=== PATIENT | male | born 1945 | race Caucasian/White ===

== ENCOUNTER → 2025-01-04 09:36 | Outpatient (REF) | payer MEDICARE, OTHER, SELFPAY ==
[2025-01-04 10:11] LABS: % Basophils 0.8 % (0-2); % Eosinophils 2.1 % (0-6); % Immature Granulocytes 0.6 % (0-0.5); % Lymphocytes 16.2 % (20.5-51.1); % Monocytes 9.8 % (1.7-9.3); % Neutrophils 70.5 % (42.2-75.2); Absolute Basophils 0.1 10^3/uL (0-0.2); Absolute Eosinophils 0.2 10^3/uL (0-0.7); Absolute Immature Granulocytes 0.1 10^3/uL (0-0.05); Absolute Lymphocytes 1.4 10^3/uL (1.2-3.4); Absolute Monocytes 0.9 10^3/uL (0.1-0.6); Absolute Neutrophils 6.3 10^3/uL (1.4-6.5); Hematocrit 40.3 % (39.0-52.0); Hemoglobin 13.5 g/dL (13.0-18.0); Mean Corp Hgb Conc. 33.5 g/dL (33.0-37.0); Mean Corpuscular Volume 95.5 fL (80.0-94.0); Mean Platelet Volume 10.1 fL (7.4-10.4); Nucleated Red Blood Cells % 0 % (-); Platelet Count 227 10^3/uL (130-400); Red Blood Cell Count 4.22 10^6/uL (4.70-6.10); Red Cell Dist. Width 13.5 % (11.5-14.5); White Blood Cell Count 8.9 10^3/uL (4.8-10.8)
[2025-01-04 10:32] LABS: ALT (SGPT) 21 U/L (0-50); AST (SGOT) 20 U/L (17-59); Albumin 3.9 g/dl (3.5-5.0); Alkaline Phosphatase 100 U/L (38-126); Blood Urea Nitrogen 30 mg/dl (9-20); Calcium 9.4 mg/dl (8.4-10.2); Carbon Dioxide 25 mmol/L (22-30); Chloride 107 mmol/L (98-107); Glucose 92 mg/dl (70-99); Sodium 139 mmol/L (135-145); Total Bilirubin 0.8 mg/dl (0.2-1.3); eGFR 51.45
== END ==
LOC: SDSPAT 09:36
PROVIDERS: ATTENDING PHYSICIAN Student in an Organized Health Care Education/Training Program; FAMILY PHYSICIAN Student in an Organized Health Care Education/Training Program; OTHER PHYSICIAN Internal Medicine Cardiovascular Disease
DX: Z95.1 Presence of aortocoronary bypass graft (principal); Z01.810 Encounter for preprocedural cardiovascular examination
CPT/HCPCS: 36415; 80053; 85025; 93005

== ENCOUNTER 2025-01-05 09:40 | Day surgery (SDC) | payer MEDICARE, OTHER, SELFPAY ==
--- NOTE | 2025-01-04 08:52 | HPS.HSE ---
Family Physician
-
Family Physician: NO INTERVIEW UNKNOWN
Chief Complaint
-
Coronary artery disease with history of CABG.
History of Present Illness
The patient is a 79 year old male presenting today for a history of multivessel coronary artery disease with previous CABG in 1984 and PCI with left main stent in 2016. He is on dual antiplatelet therapy with Aspirin and Brilinta. He does
report intermittent generalized chest 'aches' and shortness of breath, mostly with exertion, as of recent. His past medical history is significant for carotid artery disease status post bilateral carotid endarterectomy, peripheral vascular disease
status post left femoral endarterectomy and reported right lower extremity stenting, abdominal aortic aneurysm status post endovascular repair, ischemic cardiomyopathy, chronic kidney disease, and non-insulin dependent diabetes per old primary care
records. He is noted to have a lack of screening studies over the last several years despite recommended follow-up. He is now agreeable to a left cardiac catheterization given his more recent symptoms and strong advisement from his routine
product steward, Dr. Rick Camp. He denies any current complaints today such as chest pain and shortness of breath at rest, palpitations, nausea, vomiting, diarrhea, lightheadedness, dizziness, cough, sore throat, or fever.
Medical History
Past Medical History
Past Medical History: Reports Other
Additional Past Medical History:
1. Coronary artery disease/myocardial infarction, status post CABG 1984 and PCI with left main stent 2016; on dual antiplatelet therapy.
2. Hypertension.
3. Dyslipidemia.
4. Bifascicular block.
5. Ischemic cardiomyopathy, reduced ejection fraction.
6. Abdominal aortic aneurysm, status post endovascular repair 2018.
7. Bilateral carotid artery stenosis, status post bilateral carotid endarterectomy.
8. Peripheral vascular disease, status post left femoral endarterectomy, 2018, and reported right lower extremity stenting.
9. Venous varicosities, status post varicose vein stripping.
10. Mild-moderate mitral regurgitation.
11. Moderate tricuspid regurgitation.
12. Mild-moderate pulmonary regurgitation.
13. Mild pulmonary hypertension.
14. Chronic kidney disease stage 3.
15. Non-insulin dependent diabetes per records.
16. GERD.
17. Colon polyps.
18. Diverticulosis.
19. Hemorrhoids.
20. Peripheral neuropathy.
21. Multilevel degenerative disc disease with stenosis.
22. Ambulatory dysfunction.
23. BPH.
24. Left central retinal vein occlusion with resultant left eye blindness.
25. Glaucoma.
26. Depression.
27. Remote history of tobacco abuse.
Past Surgical History: Reports Other
Additional Past Surgical History:
1. CABG.
2. PCI with left main stent.
3. Endovascular AAA repair and left femoral endarterectomy.
4. Bilateral carotid endarterectomy.
5. Reported right lower extremity stenting.
6. Venous varicosity stripping.
7. Lumbar surgery.
8. Appendectomy.
9. Colonoscopy.
Social History
Tobacco: Former Smoker (He is a former 2 pack per day cigarette smoker who quit tobacco altogether in 1999. )
Alcohol: None
Personal:
Living: Other (He lives with his in a 2 story home. )
Family History
Family History: Not pertinent
Allergies / Home Medications
Allergy/Medication List:
Home medications:
1. Aspirin 81 mg p.o. daily.
2. Atorvastatin 40 mg p.o. every evening.
3. Combigan 1 drop both eyes twice a day.
4. Carvedilol 3.125 mg p.o. twice a day.
5. Dorzolamide 1 drop both eyes twice a day.
6. Zetia 5 mg p.o. every evening.
7. Folic acid 1 mg p.o. every evening.
8. Isosorbide mononitrate 30 mg p.o. daily.
9. Vyzulta 1 drop both eyes as bedtime.
10. Multivitamin 1 tablet p.o. daily.
11. Tamsulosin 0.4 mg p.o. at bedtime.
12. Brilinta 60 mg p.o. twice a day.
13. Venlafaxine 225 mg p.o. at bedtime.
14. Vitamin B complex 1 tablet p.o. twice a day.
15. CoQ10 200 mg p.o. every evening.
Allergies: No known allergies.
Review of Systems
-
A 12 point ROS was completed and negative except as noted: Yes
Physical Exam
Vital Signs
Blood pressure 131/69. Heart rate 64. Respirations 18. Pulse ox 100% on room air.
Height 5 feet, 8 inches. Weight 80.2 kg. BMI 26.9.
Physical Exam
General: Well Developed, Well Nourished and No Apparent Distress
HEENT: NormoCephalic, Moist mucous membranes, Atraumatic and Other (Chronic left eye blindness. )
Respiratory: Clear
Cardiac: Regular Rhythm
GI: Soft, Non Tender and Non Distended
Musculoskeletal: No Edema and Other (The patient ambulates with a single point cane. )
Skin: Warm and Dry
Neuro: AO x 3 and No Motor Deficits
Laboratory Results
-
DIAGNOSTIC STUDIES as of 01/04/2025: White blood cell count 8.9. Hemoglobin 13.5. Platelet count 227,000. Sodium 139. Potassium 5.0. BUN 30. Creatinine 1.4. Glucose 92. Calcium 9.4. AST 20. ALT 21. Albumin 3.9.
EKG 01/04/2025: Sinus rhythm with first degree AV block and supraventricular complexes. Bifascicular block.
Echocardiogram 12/30/2024: Severe left ventricular systolic dysfunction. Mild to moderate mitral regurgitation. Moderate tricuspid regurgitation. Mild to moderate pulmonic regurgitation. Mild pulmonary hypertension. Grade 2 diastolic dysfunction.
Impression/Plan
-
IMPRESSION/PLAN:
1. Coronary artery disease with history of CABG: The patient is in need of a left cardiac catheterization with Dr. Aidan Martin on 01/05/2025. The benefits and risks of the procedure have been explained to the patient. The patient understands
these risks and wishes to proceed. He can continue his dual antiplatelet medications uninterrupted prior to his procedure.
[2025-01-04 09:47] VITALS: BMI 26.9
[2025-01-05] VITALS (14 sets, daily range): BP systolic 113–156; BP diastolic 70–98; BMI 26.6
[2025-01-05] MEDS: NSS 238 ML IV (11:12)
[2025-01-05 14:14] LABS: ACT-LR - POC 271 Seconds (116-155)
[2025-01-05 14:30] LABS: ACT-LR - POC 253 Seconds (116-155)
[2025-01-05 14:42] LABS: ACT-LR - POC 318 Seconds (116-155)
[2025-01-05 15:10] LABS: ACT-LR - POC 361 Seconds (116-155)
[2025-01-05 16:32] LABS: ACT-LR - POC 321 Seconds (116-155)
--- NOTE | 2025-01-05 17:30 | PTCARENOTE ---
Received pt from micro lab analyst, VSS, monitor showing SR 1st deg AV block, +BBB. Right femoral arterial line to pressure bag & transducer, left femoral vein to NSS @ KVO, dressing with old drainage noted, no active bleeding, no hematoma. +CMS to right
foot, palpable pedal pulses noted. Slight back discomfort d/t strict bedrest. Oriented to room, call singh in reach.
[2025-01-05 17:38] LABS: ACT-LR - POC 218 Seconds (116-155)
[2025-01-05] MEDS: ZETIA 5 MG PO (17:49)
[2025-01-05] MEDS: LIPITOR 40 MG PO (17:49)
[2025-01-05] MEDS: NSS 500 VEN SHEATH (17:50)
[2025-01-05 18:50] LABS: ACT-LR - POC 190 Seconds (116-155)
[2025-01-05 20:01] LABS: ACT-LR - POC 173 Seconds (116-155)
[2025-01-05] MEDS: COREG 3.125 MG PO (20:08)
[2025-01-05] MEDS: TIMOPTIC 0.5% OPHTHALMIC SOLUTION 1 DROP BOTH EYES (20:15)
[2025-01-05] MEDS: TRUSOPT 2% OPHTHALMIC SOLUTION 1 DROP BOTH EYES (20:16)
[2025-01-05] MEDS: ALPHAGAN 0.2% EYE DROPS 1 DROP BOTH EYES (20:59)
[2025-01-05 21:00] LABS: ACT-LR - POC 149 Seconds (116-155)
--- NOTE | 2025-01-05 21:22 | ITS.CL.PN ---
[employer] Delivery Driver - Procedure Note
Procedure
Procedure Note:
CARDIAC CATHETERIZATION REPORT
Date of Procedure: 01/05/25
Referring: Dr. Rick Camp MD
Indication: severe cardiomyopathy
PROCEDURE(S)
1. right heart catheterization
1. left heart catheterization
2. coronary angiography
3. bypass graft angiography
4. iFR RCA
5. attempted PCI to Ramus
ACCESS:
1. 6F right common femoral artery (closure: manual hemostasis)
2. 6F right common femoral vein (closure: manual hemostasis)
CATHETERS
1. 6F Waterproof-Alyse
2. 6F 3DRC
3. 6F JL3.5
4. 6F DENNISE
5. 6F 3DRC guide
6. 6F EBU3.5 guide
MODERATE SEDATION: 60 minutes of moderate sedation was utilized. An independent auditor medical claims was present to assist with and help manage the patient's level of consciousness and physiologic status.
HEMODYNAMIC DATA
LV 150/17 (EDP 26) mmHg
AO 155/69 (mean 101) mmHg
RA 13 mmHg
RV 52/8 (EDP 14) mmHg
PA 49/20 (mean 32) mmHg
PCWP 26 mmHg
SaO2 97.0%
SvO2 66.6%
Hb 13.2 g/dL
CO/CI 4.44/2.29 L/min/m2
SVR 1586 dsc*-5
PVR 1.6 Wood units
CORONARY ANGIOGRAPHY
Dominance: Right
LM: Patent stent, no significant disease
LAD: Totally occluded proximally with the vessel supplied by the patent LARIOS to LAD
LCx: Small vessel giving rise to a small marginal branch and small LPL branch. There is diffuse moderate nonobstructive disease.
Ramus: Moderate caliber vessel with a retroflexed takeoff. There is up to 90% disease in the mid body of the vessel and diffuse moderate disease throughout. There is DINA-3 flow distally.
RCA: Small vessel giving rise to a small RPDA. There is focal calcific disease at the ostium that appears severe in cranial projections. However there is no pressure dampening on engagement and normal contrast reflux from the vessel. This was
further interrogated by iFR and found to be negative.
BYPASS GRAFT ANGIOGRAPHY:
LARIOS-LAD: the LARIOS is taken as a pedicle and forms an anastomosis with the mid-LAD. The supplied portion of the LAD is patent with mild disease only.
SVG-Ramus: known to be occluded and no selectively engaged
iFR of ostial RCA
Heparin was administered to achieve ACT greater than 300. An Omni wire was flushed and zeroed outside the body and then advanced to the tip of the guide which had been disengaged near the ostium of the RCA. The wire introducer was removed and the
catheter flushed with saline, after which pressure of the wire and guide were normalized. The wire was advanced to the mid RCA with careful attention paid to maintaining the guide catheter in a disengaged position. iFR recorded at 0.95. iFR pullback
was performed noting a focal pattern at the ostium. On return to the tip of the guide catheter, iFR appropriately normalized to ~1.0, confirming lack of wire drift. To ensure accuracy given the challenges in maintaining disengaged guide position,
the entire procedure was repeated again with similar results. The procedure was then repeated a third time with normalization performed with the wire in the mid vessel and pullback performed noting jump to 1.05 with the wire in the aorta, again,
also consistent with an ostial RCA delta IFR of 0.05. Overall, these multiple measure were consistent with nonobstructive disease at the RCA ostium.
Attempted PCI of ramus artery
As above, there was noted to be new obstructive disease of the moderate caliber ramus artery. The decision was made to attempt PCI of this vessel to improve coronary perfusion in the setting of severe ischemic cardiomyopathy. I anticipated
difficulty with wiring and equipment deliver given the retroflexed takeoff, so, given contrast usage and the patient's moderately elevated LVEDP, plan was stage the procedure if it became clear that completion would require significant additional
time and contrast. The left main was engaged with a EBU3.5 guide catheter. A Runthrough wire was advanced to the proximal portion of the ramus with moderate difficulty after multiple wire reshapings to allow wiring of what proved to be a truly 180
degree retroflexed takeoff. Wiring difficulty was further compounded by presence of the left main stent which extended to the ramus takeoff. It was clear that successful PCI of this vessel would require more complex wiring techniques and support for
equipment delivery (angled microcatheter, guide catheter extension, etc.). Given contrast usage in the setting of the patient's known CKD, the decision was made to end the procedure and consider staged PCI of the ramus in the future after medical
optimization and risk benefit assessment. The patient remained stable and comfortable throughout the procedure. Final angiography showed stable appearance of the vessel. The wire and guide were removed and hemostasis achieved with manual pressure.
RADIATION: dose 2348 mGy; DAP 122.905 Gy*cm2; fluoroscopy time 37.5 min
CONCLUSIONS
1. Elevated biventricular filling pressures, moderate postcapillary pulmonary hypertension, and low normal cardiac index with elevated SVR.
2. No aortic stenosis on hemodynamic pullback.
3. Coronary artery disease as described with patent LARIOS to LAD, severe stenosis in the ramus artery, nonobstructive disease in the small circumflex, and iFR negative stenosis in the ostial RCA. Coronary disease is out of proportion to his
cardiomyopathy, suggesting both an ischemic and non-ischemic component.
RECOMMENDATIONS
1. Medical optimization of mixed ICM/NICM with GDMT
2. Consideration of PCI to Ramus pending improvement in cardiomyopathy and symptoms with GDMT
Copy to: Dr. Rick Camp MD (rigger helper); Dr. Otto Greer MD (PCP)
Signed: Aidan Martin MD, PhD
[2025-01-05] MEDS: EFFEXOR XR 225 MG PO (23:49)
[2025-01-05] MEDS: FLOMAX 0.4 MG PO (23:49)
[2025-01-06] VITALS: BP 153/84
--- NOTE | 2025-01-06 00:47 | PTCARENOTE ---
Rec'd pt at change of shift. Pt AAO*3, VSS, and SR on TELE monitor with BBB and 1st degree AV block. Pt initially with R femoral Arterial line and Venous sheath. Pt denies any pain or discomfort. Arterial hemostasis achieved at 22:15, venous
hemostasis achieved at 21:50. Pt agreed to R lower extremity activity restrictions. Pt resting with call singh in reach. See MAR and flowchart for full pt care and assessment.
[2025-01-06 01:02] VITALS: BP 153/83
[2025-01-06 01:03] VITALS: BP 153/78
[2025-01-06 02:32] VITALS: BP 144/79
[2025-01-06 02:40] VITALS: BP 144/79
[2025-01-06 03:02] VITALS: BMI 26.4
[2025-01-06 03:05] LABS: Hematocrit 38.4 % (39.0-52.0); Hemoglobin 13.4 g/dL (13.0-18.0); Mean Corp Hgb Conc. 34.9 g/dL (33.0-37.0); Mean Corpuscular Hgb 31.9 pg (27.0-31.0); Mean Corpuscular Volume 91.4 fL (80.0-94.0); Mean Platelet Volume 9.8 fL (7.4-10.4); Platelet Count 206 10^3/uL (130-400); Red Cell Dist. Width 13.4 % (11.5-14.5); White Blood Cell Count 8.6 10^3/uL (4.8-10.8)
--- NOTE | 2025-01-06 03:25 | PTCARENOTE ---
Addendum entered by Henry Zhong RN 01/06/25 03:33:
Devin Beltran notified and aware. Added order for mg.
Original Note:
At 02:29 TELE alarmed VTach. Pt had 26 beat run of VTach on monitor. Vital signs taken. EKG obtained and unchanged. Labs drawn and order for MG add on obtained. Pt denied any chest pain or palpitations. R groin site dressing CDI. Pt updated
on plan of care and agreed to alert staff with any palpitations or chest discomfort. Pt resting with call singh in reach and plan of care on going. See MAR and flowchart for full pt care and assessment.
[2025-01-06] MEDS: BRILINTA 60 MG PO ×2 (03:31→10:06)
[2025-01-06 04:16] LABS: Blood Urea Nitrogen 27 mg/dl (9-20); Calcium 9.3 mg/dl (8.4-10.2); Carbon Dioxide 21 mmol/L (22-30); Chloride 110 mmol/L (98-107); Estimated Creatinine Clearance 54 ml/min; Glucose 170 mg/dl (70-99); HDL Cholesterol 32 mg/dl; LDL Cholesterol, Calculated 25 mg/dl; Potassium 4.2 mmol/L (3.5-5.1); Sodium 139 mmol/L (135-145); Total Cholesterol 103 mg/dl (50-199); Triglyceride 233 mg/dl (10-149); Very Low Density Lipoprotein 46 mg/dl (0-30); eGFR > 60.00
[2025-01-06] MEDS: TUMS CHEWABLE TABLET 200 MG PO (04:59)
[2025-01-06 05:56] LABS: Magnesium 2.1 mg/dl (1.6-2.3)
[2025-01-06 07:19] VITALS: BP 155/90
--- NOTE | 2025-01-06 08:42 | W.PN.CARDCBS ---
Today's Communication / Plan
-
Stop carvediolol- initiate metoprolol xl and entresto
labs in 1 week
consider farxiga/spironolactone in outpt setting
followup w/Dr. Camp
home today
Impression / Plan
-
PCP: Lucila Tee MD
CDY: Rick Camp MD
79 y/o, complex cardiovascular disease with CABG in 1984 and LM PCI in 2016. Presented with intermittent CP/SOB/BLOOM, echo with severe LV dysfunction EF 25-30%, inferior/anterolateral HK, sev dilated LA.
Cath yesterday with RCA stenosis that was non flow limiting with iFR negative, 3 patent grafts, and stenosis in Ramus. Attempted PCI of ramus but unable to cross and procedure aborted. RHP modestly elevated, PA 49/28, PCW 26. Monitored on tele
overnight with frequent PVCs/NSVT up to 25bt run, asymptomatic.
IMPRESSION/PLAN:
CAD/prior CABG (1984), LM PCI (2016)
Cath with iFR negative RCA, 3 patent grafts
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
groin site stable after sheath pull late last evening
continue aspirin, low dose brilinta, isosorbide
home today
follow with Dr. Camp
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
tele with increased ectopy overnight- PVC/NSVT
not on adequate GDMT- only low dose carvedilol
will stop carvedilol and start metoprolol xl 50 BID and entresto 24/26 BID
check BMP/Mg in 1 week w/results to Dr. Capm
consider starting dapagliflozin, spironolactone in outpt setting if he's tolerating metoprolol/entresto
repeat echo in 2-3 months- consider primary prevention ICD if no improvement
CKD3a- stable creat today post dye load
monitor with addition of entresto
HTN- BP stable and will tolerate addition of new meds
HLD- lipid profile noted, continue atorvastatin 40/d, zetia 10/d
AAA, s/p EVAR (2018)
B/L Carotid artery stenosis, s/p bilateral carotid endarterectomies
PAD, s/p Left Femoral endarterectomy (2018) and prior RLE stenting
Left retinal occlusion with blindness/glaucoma
GERD
BPH
Progress Note - Wet Process Technician
Subjective
Date of Service: January 06, 2025
Denies cp/palps/dyspnea/groin pain
oob ambulating
Objective
Labs:
01/06/25 02:54
01/06/25 02:54
Labs
Hgb 13.4 g/dL (13.0-18.0) 01/06/25 02:54
Hct 38.4 % (39.0-52.0) L 01/06/25 02:54
Plt Count 206 10^3/uL (130-400) 01/06/25 02:54
Sodium 139 mmol/L (135-145) 01/06/25 02:54
Potassium 4.2 mmol/L (3.5-5.1) 01/06/25 02:54
BUN 27 mg/dl (9-20) H 01/06/25 02:54
Creatinine 1.1 mg/dL (0.7-1.3) 01/06/25 02:54
Glucose 170 mg/dl (70-99) H 01/06/25 02:54
Vital Signs and I&O:
Vital Signs
Temp Pulse Resp BP Pulse Ox
98.2 F 79 16 155/90 95
01/06/25 07:18 01/06/25 08:15 01/06/25 07:18 01/06/25 07:19 01/06/25 07:18
Vital Signs
Temp Pulse Resp BP Pulse Ox
98.2 F 79 16 155/90 95
01/06/25 07:18 01/06/25 08:15 01/06/25 07:18 01/06/25 07:19 01/06/25 07:18
Intake & Output
01/04/25 01/05/25 01/06/25 01/07/25
06:59 06:59 06:59 06:59
Intake Total 1218 / 1218
Output Total 900 / 900
Balance 318 / 318
Physical Exam
Physical Exam
AAOx3, MAEE 5/5
RRR S1 S2 no murmurs
CTA bilat, non labored
soft abd, + bs
right groin site without ht/bleeding, soft/non tender
bilat extremities w/palpable distal pulses, no edema
[2025-01-06] MEDS: NSS VEN SHEATH (09:13)
[2025-01-06] MEDS: COREG PO (09:14)
[2025-01-06] MEDS: IMDUR (EXTENDED RELEASE) 30 MG PO (09:20)
[2025-01-06] MEDS: ASPIR LOW (ENTERIC COATED) 81 MG PO (09:20)
[2025-01-06] MEDS: TIMOPTIC 0.5% OPHTHALMIC SOLUTION 1 DROP BOTH EYES (09:21)
[2025-01-06] MEDS: ALPHAGAN 0.2% EYE DROPS 1 DROP BOTH EYES (09:22)
[2025-01-06] MEDS: TRUSOPT 2% OPHTHALMIC SOLUTION 1 DROP BOTH EYES (09:22)
[2025-01-06] MEDS: ENTRESTO 24 MG/26 MG 1 TAB PO (09:28)
[2025-01-06] MEDS: TOPROL XL 50 MG PO (09:29)
--- NOTE | 2025-01-06 09:49 | PTCARENOTE ---
Received patient this morning resting in bed. Right groin dressing is dry and intact with palpable pedal pulse, no signs of bleeding or hematoma. Telemetry alarms reviewed by Dr. Loredo, medications changed and patient is ok for discharge. Patient
waiting for his for discharge home.
--- NOTE | 2025-01-06 10:49 | PTCARENOTE ---
Reviewed discharge instructions, new medications and follow up appointments/lab work with the patient and he states his understanding. patient discharged home with his .
--- NOTE | 2025-01-06 10:52 | CM ---
CM following for DC planning needs.
Pt. resides w/ spouse in a private home.
Functionally, patient is indep. w/ use of a SPC.
Plan is for DC to home, no needs.
--- NOTE | 2025-01-06 12:40 | W.DS.TRANS ---
DC Summary - Cake Icer
-
Discharge Instructions:
Discharge Diagnosis/Procedures Cardiac catheterization, attempted Ramus artery
angioplasty
Diet Low Cholesterol,Low Sodium
Driving Restrictions No driving for 24 hours
Blood Work BMP in 1 week- results to Dr. Camp
Specialty Instructions Weigh Daily
Instructions: *PCP/Other [place] Department Operator Heart Failure Instructions
Stand-Alone Forms: DC Instructions- Cath/EP Lab
Changes to Home Medications: Yes
Discharge Medications:
DC Medications w/original date entered in [facility]
aspirin 81 mg tablet,delayed release 81 mg PO DAILY 01/01/25
atorvastatin 40 mg tablet 40 mg PO QPM 01/01/25
brimonidine 0.2 %-timolol 0.5 % eye drops (Combigan) 1 drp BOTH EYES BID 01/01/25
dorzolamide (PF) 2 % (PF) eye drops 1 drp BOTH EYES BID 01/01/25
ezetimibe 10 mg tablet 5 mg PO QPM 01/01/25
folic acid 1 mg tablet 1 mg PO QPM 01/01/25
isosorbide mononitrate 30 mg tablet,extended release 24 hr 30 mg PO DAILY 01/01/25
latanoprostene bunod 0.024 % eye drops (Vyzulta) 1 drp BOTH EYES HS 01/01/25
multivitamin 1 tab PO DAILY 01/01/25
tamsulosin 0.4 mg capsule 0.4 mg PO HS 01/01/25
ticagrelor 60 mg tablet (Brilinta) 60 mg PO BID 01/01/25
venlafaxine 225 mg tablet,extended release 24 hr 225 mg PO HS 01/01/25
vitamin B complex 1 tab PO BID 01/01/25
coenzyme Q10 100 mg capsule (CoQ-10) 200 mg PO QPM 01/04/25
metoprolol succinate 50 mg tablet,extended release 24 hr 50 mg PO BID #60 tabs 01/06/25
sacubitril 24 mg-valsartan 26 mg tablet 1 tab PO BID #60 tabs 01/06/25
Home Medication Changes
NEW: metoprolol succinate, entresto
STOP: carvedilol
Pending Results: No
== END 2025-01-06 10:30 | disposition home or self-care (01) ==
LOC: CATH 09:40
PROVIDERS: Nurse Practitioner; Nurse Practitioner Primary Care; ATTENDING PHYSICIAN Student in an Organized Health Care Education/Training Program; FAMILY PHYSICIAN Student in an Organized Health Care Education/Training Program; OTHER PHYSICIAN Internal Medicine Cardiovascular Disease
DX: I25.10 Atherosclerotic heart disease of native coronary artery without angina pectoris (principal); I13.0 Hypertensive heart and chronic kidney disease with heart failure and stage 1 through stage 4 chronic kidney disease, or unspecified chronic kidney disease; Z95.5 Presence of coronary angioplasty implant and graft; Z95.1 Presence of aortocoronary bypass graft; E11.22 Type 2 diabetes mellitus with diabetic chronic kidney disease; N18.31 Chronic kidney disease, stage 3a; I50.22 Chronic systolic (congestive) heart failure; Z79.82 Long term (current) use of aspirin; E78.5 Hyperlipidemia, unspecified; I45.2 Bifascicular block; I25.5 Ischemic cardiomyopathy; I71.40 Abdominal aortic aneurysm, without rupture, unspecified; Z98.890 Other specified postprocedural states; I08.1 Rheumatic disorders of both mitral and tricuspid valves; I08.8 Other rheumatic multiple valve diseases; Z79.02 Long term (current) use of antithrombotics/antiplatelets; Z90.49 Acquired absence of other specified parts of digestive tract; K21.9 Gastro-esophageal reflux disease without esophagitis; Z86.0100 Personal history of colon polyps, unspecified; K57.90 Diverticulosis of intestine, part unspecified, without perforation or abscess without bleeding; G62.9 Polyneuropathy, unspecified; N40.0 Benign prostatic hyperplasia without lower urinary tract symptoms; H34.8122 Central retinal vein occlusion, left eye, stable; H40.9 Unspecified glaucoma; F32.A Depression, unspecified; Z87.891 Personal history of nicotine dependence; Z79.899 Other long term (current) drug therapy; I27.29 Other secondary pulmonary hypertension; I65.23 Occlusion and stenosis of bilateral carotid arteries; I47.20 Ventricular tachycardia, unspecified; I49.3 Ventricular premature depolarization; E11.51 Type 2 diabetes mellitus with diabetic peripheral angiopathy without gangrene; I25.2 Old myocardial infarction; I45.10 Unspecified right bundle-branch block
CPT/HCPCS: 93799; 99152; 99153; 80048; 80061; 83735; 85027; 85347; 92920; 93005; 93461; Q9967